=== PATIENT | female | born 1970 | race Caucasian/White ===

== ENCOUNTER 2017-09-24 16:23 | Emergency (ER) | payer OTHER ==
[2017-09-24 16:29] VITALS: BP 123/75; PULSE 71; TEMP 98.1; BMI 26.4
[2017-09-24] MEDS ORDERED: LORATADINE 10 MG TABLET PO ONE (16:54)
[2017-09-24] MEDS ORDERED: DEXAMETHASONE SOD PHOSPHATE 10 MG/1 ML VIAL IM ONE (16:54)
--- NOTE | 2017-09-24 17:00 | PDOC ---
History of Present Illness - General Chief Complaint: Rash Stated Complaint: RASH Time Seen by Provider: 09/24/17 16:50 History Source: Patient - History of Present Illness Timing/Duration: reports: other Severity: Yes: moderate Location: reports: extremities, torso Past History - Past Medical History Allergies/Adverse Reactions: Allergies Allergy/AdvReac Type Severity Reaction Status Date / Time No Known Allergies Allergy Verified 09/24/17 16:29 Home Medications: Ambulatory Orders Loratadine [Claritin] 10 mg PO DAILY #14 tablet 09/24/17 Permethrin 5% Topical Cream [Elimite -] 1 applic TP ONCE #1 tube 09/24/17 Asthma: No Cancer: No Cardiac Disorders: No COPD: No Diabetes: No HTN: No Seizures: No Thyroid Disease: No - Suicide/Smoking/Psychosocial Hx Smoking Status: No Smoking History: Never smoked Have you smoked in the past 12 months: No Number of Cigarettes Smoked Daily: 0 Hx Alcohol Use: No Drug/Substance Use Hx: No Substance Use Type: None Hx Substance Use Treatment: No Review of Systems - Review of Systems Constitutional: No: Chills, Fever Integumentary: Yes: Pruritus, Rash *Physical Exam - Vital Signs Last Vital Signs Temp Pulse Resp BP Pulse Ox 98.1 F 71 18 123/75 99 09/24/17 16:27 09/24/17 16:27 09/24/17 16:27 09/24/17 16:27 09/24/17 16:27 - Physical Exam General Appearance: Yes: Appropriately Dressed, Mild Distress HEENT: positive: Normal Voice Neck: positive: Supple Respiratory/Chest: negative: Respiratory Distress Integumentary: positive: Dry, Warm, Rash (non-descript, erythematous, pinpoint papules scantly distrubuted to anterior neck and hand b/l including sides of fingers), Other (no blisters, vesicles or linear streaking at this time) Neurologic: positive: Fully Oriented, Alert, Normal Mood/Affect Medical Decision Making - Medical Decision Making 09/24/17 17:01 46-year-old female, no significant history here with pruritic rash mostly to neck, trunk and upper extremities that started while gardening 3 days ago. Has not taken anything for itching. No tongue swelling or shortness of breath. Denies any new topical agents at home such as detergents or lotion. No sick contacts or recent travel. See exam Allergic rash vs scabies given hand/web involvement, poison carly considered given hx -claritin/dose of decadron in ED 2/2 severe itching -dc to take otc antihistamine, also given trial of permetrin, will hold off on topical steroids at this time given exam -to return for worsening of symptoms *DC/Admit/Observation/Transfer Diagnosis at time of Disposition: Rash and nonspecific skin eruption - Discharge Dispostion Disposition: HOME Condition at time of disposition: Good - Prescriptions Prescriptions: Loratadine [Claritin] 10 mg PO DAILY #14 tablet Permethrin 5% Topical Cream [Elimite -] 1 applic TP ONCE #1 tube - Referrals Referrals: Megan Bradley MD [Primary Care Provider] - Sana Luna MD [Staff Physician] - - Patient Instructions Printed Discharge Instructions: DI for Rash Additional Instructions: [place] erupcin no est norah en radha momento. Posiblemente podra ser clyde reaccin alrgica. Y para eso puede lakshmi Claritin o Zyrtec clyde vez al da para picar y por la noche. Puede usar Benadryl por la noche segn sea necesario. Tambin le recetaron clyde crema llamada permetrina para la posible sarna, que es clyde erupcin con picazn severa causada por un lazo que es un tipo de insecto. Aplique la crema de la richard a los pies y lvela despus de 8-14 h. Repita en 1 -2 weks si la erupcin todava est presente. Lave toda la ropa de cama / ropa usada desde que comenz la erupcin en [place]. Si todava est presente, siga con el Dr. Luna de dermatologa Por favor regrese a ER si los sntomas empeoran significativamente - Post Discharge Activity
[2017-09-24] MEDS ORDERED: LORATADINE 10 MG TABLET ONE (17:05)
[2017-09-24] MEDS ORDERED: DEXAMETHASONE SOD PHOSPHATE 10 MG/1 ML VIAL ONE (17:05)
== END 2017-09-24 17:13 | disposition home or self-care (01) ==
LOC: JERFT 16:23
PROC: 3E0233Z Introduction of Anti-inflammatory into Muscle, Percutaneous Approach (ICD-10-PCS; principal; 2017-09-24)
DX: R21 Rash and other nonspecific skin eruption (principal)
CPT/HCPCS: 96372; 99281-25; J1100

== ENCOUNTER 2018-03-13 14:05 | Emergency (ER) | payer OTHER ==
[2018-03-13 14:11] VITALS: BMI 25.9
--- NOTE | 2018-03-13 15:40 | PDOC ---
History of Present Illness - General Chief Complaint: Pain Stated Complaint: PAIN Time Seen by Provider: 03/13/18 14:49 History Source: Patient Exam Limitations: Language Barrier - History of Present Illness Initial Comments: 47 yo F w a history of a cyst on her left ovary identified when she was 3 years ago is here with 3 days of on and off LLQ abdominal pain which comes and goes and is associated with occasional nausea but no vomiting. She states the pain radiates to her groin when it comes about. She has not had any abnormal discharge or bleeding coming from her vagina. Last bowel movement was this morning and it was normal in consistency. She states she has not been sexually active for the past 2 months. She also denies any history of sexually transmitted diseases. She also denies having a hx of kidney stones. She denies any recent fevers, chills, or infections. Denies diarrhea or constipation. Denies chest pain, SOB, Difficulty breathing. Denies back pain, leg pain. PCP: Megan Fernandez PSH: None Social hx: Denies smoking, drinking, or illicit drug usage Allergies: NKA, NKDA Past History - Past Medical History Allergies/Adverse Reactions: Allergies Allergy/AdvReac Type Severity Reaction Status Date / Time No Known Allergies Allergy Verified 09/24/17 16:29 Home Medications: Ambulatory Orders NK [No Known Home Medication] 03/13/18 Asthma: No Cancer: No Cardiac Disorders: No COPD: No Diabetes: No HTN: No Seizures: No Thyroid Disease: No - Immunization History Immunization Up to Date: Yes - Suicide/Smoking/Psychosocial Hx Smoking Status: No Smoking History: Never smoked Have you smoked in the past 12 months: No Number of Cigarettes Smoked Daily: 0 Hx Alcohol Use: No Drug/Substance Use Hx: No Substance Use Type: None Hx Substance Use Treatment: No Review of Systems - Review of Systems Comments:: CONSTITUTIONAL: Absent: fever, no chills, no fatigue EYES: Absent: visual changes ENT: Absent: ear pain, no sore throat CARDIOVASCULAR: Absent: chest pain, no palpitations RESPIRATORY: Absent: cough, no SOB GASTROINTESTINAL: Present: Abdominal pain, Nausea Absent: no vomiting, no constipation, no diarrhea GENITOURINARY: Absent: dysuria, frequency, urgency, hesitancy, hematuria, flank pain, genital pain MUSKULOSKELETAL: Absent: back pain, no arthralgia, no myalgia SKIN: Absent: rash NEURO: Absent: Headache *Physical Exam - Vital Signs Last Vital Signs Temp Pulse Resp BP Pulse Ox 98.4 F 83 18 142/78 98 03/13/18 14:08 03/13/18 14:08 03/13/18 14:08 03/13/18 14:08 03/13/18 14:08 - Physical Exam Comments: GENERAL: Well-appearing, well-nourished. No apparent distress. HEENT: Normocephalic, atraumatic. PERRL, EOM intact. CARDIOVASCULAR: Normal S1, S2. Regular rate and rhythm. PULMONARY: Clear to auscultation bilaterally. ABDOMINAL: There is TTP in the LLQ, and mild suprapubic pain. Negative alfaro sign. Abdomen has normal BS and is still soft. Non-distended. No rebound or guarding. No organomegaly. EXTREMITIES: Normal ROM in all four extremities. No gross deformities. SKIN: Warm, dry. No rash NEUROLOGICAL: No focal neurological deficits. PELVIC EXAM There is significant Left adnexal tenderness. External genitalia normal without lesions. Vaginal vault is clear without blood or discharge. Cervix is long and closed. No cervical motion tenderness. Uterus is nontender and normal in size. Moderate Sedation - Procedure Monitoring Vital Signs: Procedure Monitoring Vital Signs Temperature 98.4 F 03/13/18 14:08 Pulse Rate 83 03/13/18 14:08 Respiratory Rate 18 03/13/18 14:08 Blood Pressure 142/78 03/13/18 14:08 O2 Sat by Pulse Oximetry (%) 98 03/13/18 14:08 ED Treatment Course - LABORATORY CBC & Chemistry Diagram: 03/13/18 16:05 03/13/18 16:05 - RADIOLOGY Radiology Studies Ordered: Category Date Time Status TRANSVAGINAL ULTRASOUND US [US] Stat Ultrasound 03/13/18 15:34 Ordered Medical Decision Making - Medical Decision Making 47 yo F w a history of a cyst on her left ovary identified when she was 3 years ago is here with 3 days of on and off LLQ abdominal pain which comes and goes and is associated with occasional nausea but no vomiting. She states the pain radiates to her groin when it comes about. DD includes but not limited to: ovarian torsion, other ovarian pathology, UTI/ pylo, kidney stones, PID, /ectopic, diverticulitis. Plan: Cbc, Cmp, Hcg, ua/uc, TVUS, +/- CTAP, analgesia, IV hydration, re-assess. UA negative for blood, LE, nitrite, HCG. - Lower suspicion for stones, uti/pylo, /ectopic Cbc, Cmp WNL. TVUS showed a 2 cm left ovarian cyst which is likely the source for the patients pain. 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 *DC/Admit/Observation/Transfer Diagnosis at time of Disposition: Ovarian cyst - Discharge Dispostion Disposition: HOME Condition at time of disposition: Stable Decision to Admit order: No - Referrals Referrals: Megan Bradley MD [Primary Care Provider] - Sarahi Gay MD [Staff Physician] - - Patient Instructions Printed Discharge Instructions: DI for Ovarian Cyst Additional Instructions: You came into the ER with Left sided abdominal pain. We did an ultrasound which showed you have a 2 cm cyst in your left ovary. We believe this cyst is the cause of your abdominal pain. Take motrin/ibuprofen/advil for pain relief. It is important to schedule a follow up appointment with a algorithm developer. We have attached the number for Dr. Gay for you to call and schedule and appointment. Please come back to the ER if your pain worsens, becomes unbearable, you start bleeding from your vagina, develop a fever, start to feel lightheaded, have extreme pain, or any other new or worsening concerns. Thank you for coming to the [facility] ER. We hope you feel better soon! Print Language: SLOVENIAN - Post Discharge Activity
[2018-03-13] MEDS ORDERED: SODIUM CHLORIDE 0.9% 500 ML INFUS.BAG IV ONE (15:56)
[2018-03-13] MEDS ORDERED: ACETAMINOPHEN 1000 MG/100 ML VIAL (NON FORMULARY) IVPB ONE (15:58)
[2018-03-13] MEDS ORDERED: ACETAMINOPHEN INJECTION 100 ML IVPB ONE (16:12)
[2018-03-13 16:20] LABS: URINE APPEARANCE CLEAR; URINE BILIRUBIN NEGATIVE (<2.0 mg/dL); URINE COLOR LTYELLOW; URINE GLUCOSE (UA) NEGATIVE (NEGATIVE); URINE KETONE NEGATIVE (NEGATIVE); URINE LEUK ESTERASE NEGATIVE (NEGATIVE); URINE NITRITE NEGATIVE (NEGATIVE); URINE PROTEIN NEGATIVE (NEGATIVE); URINE UROBILINOGEN NEGATIVE mg/dL (0.2-1.0)
[2018-03-13 16:24] LABS: BASO % 0.5 % (0-2.0); EOS % 1.1 % (0-4.5); HEMATOCRIT 38.8 % (32.4-45.2); LYMPH % 19.5 % (8-40); MCH 32.7 pg (25.7-33.7); MEAN CELL VOLUME 90.8 fl (80-96); MONO % 4.7 % (3.8-10.2); NEUT % 74.2 % (42.8-82.8); PLATELET COUNT 383 K/MM3 (134-434); RBC 4.27 M/mm3 (3.60-5.2); RDW 13.3 % (11.6-15.6); WHITE BLOOD COUNT 9.5 K/mm3 (4.0-10.0)
--- NOTE | 2018-03-13 16:36 | PDOC ---
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 LMP was 02/22, no known history of cyst complications, never required cystectomy. - Physicial Exam PE: 03/13/18 16:35 Vital signs normal, urine pending Well-appearing seated in stretcher Abdomen: Soft/nondistended. Tender with some guarding in the left pelvic region , no palpable hernias, no CVA tenderness. Pelvic per resident note - Medical Decision Making 03/13/18 16:35 47-year-old female with 2 days of progressive left pelvic pain, mid cycle with history of ovarian cysts. 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 Rule out UTI, less likely GI etiology. Labs, urinalysis Transvaginal ultrasound Reassess. If ultrasound negative, consider CAT scan.
[2018-03-13 17:06] LABS: ALBUMIN 4.2 g/dl (3.4-5.0); ALK PHOS 127 U/L (45-117); ANION GAP 7 MMOL/L (8-16); BILIRUBIN,TOTAL 0.5 mg/dL (0.2-1); BLOOD UREA NITROGEN 9 mg/dL (7-18); CALCIUM 9.1 mg/dL (8.5-10.1); CHLORIDE 102 mmol/L (98-107); CO2 29 mmol/L (21-32); CREATININE 0.7 mg/dL (0.55-1.3); GLUCOSE,RANDOM 90 mg/dL (74-106); POTASSIUM 3.6 mmol/L (3.5-5.1); SGOT/AST 26 U/L (15-37); SGPT/ALT 39 U/L (13-61); SODIUM 138 mmol/L (136-145); TOT PROT 8.7 g/dl (6.4-8.2)
[2018-03-13] MEDS ORDERED: IBUPROFEN 600 MG TABLET (FP) PO ONE ×2 (18:14→18:23)
[2018-03-13 18:40] VITALS: BP 125/80; PULSE 69; TEMP 98
== END 2018-03-13 18:37 | disposition home or self-care (01) ==
LOC: JER 14:05
PROC: 3E033NZ Introduction of Analgesics, Hypnotics, Sedatives into Peripheral Vein, Percutaneous Approach (ICD-10-PCS; principal; 2018-03-13)
DX: N83.202 Unspecified ovarian cyst, left side (principal)
CPT/HCPCS: 36415; 76830-TC; 80053; 81003; 84703; 85025; 87086; 96374; 99284-25; J0131

== ENCOUNTER 2019-01-24 18:41 | Emergency (ER) | payer OTHER ==
[2019-01-24] MEDS ORDERED: DEXAMETHASONE LIQUID 0.5 MG/5 ML PO ONE (18:48)
--- NOTE | 2019-01-24 18:49 | PDOC ---
Rapid Medical Evaluation Time Seen by Provider: 01/24/19 18:45 Medical Evaluation: Allergies Allergy/AdvReac Type Severity Reaction Status Date / Time No Known Allergies Allergy Verified 03/14/18 16:29 01/24/19 18:46 I have performed a brief in-person evaluation of this patient. The patient presents with a chief complaint of: bee sting to R breast 1 hr ago, feels itching to throat and ear Pertinent physical exam findings: no resp distress, speaking in full sentences I have ordered the following: decadron, defer antihistamine to FT provider The patient will proceed to the ED for further evaluation. Discharge Disposition - Diagnosis Bee sting - Referrals - Patient Instructions - Post Discharge Activity
[2019-01-24 18:50] VITALS: TEMP 98.4; BMI 20.9
[2019-01-24] MEDS ORDERED: diphenhydrAMINE HCL 25 MG CAPSULE (FP) PO ONE (19:00)
[2019-01-24] MEDS ORDERED: DEXAMETHASONE SOD PHOSPHATE 10 MG/1 ML VIAL ONE (19:00)
[2019-01-24] MEDS ORDERED: methylPREDNISolone NA SUCC 125 MG/2 ML VIAL ONE (19:04)
[2019-01-24] MEDS ORDERED: ALBUTEROL SO4 2.5/IPRATROPIUM 0.5 INH SOL 3 ML VIAL.NEB. NEB ONE ×2 (19:10→19:18)
[2019-01-24] MEDS ORDERED: methylPREDNISolone NA SUCC 125 MG/2 ML VIAL IVPUSH ONE (19:17)
--- NOTE | 2019-01-24 20:00 | PDOC ---
History of Present Illness - General Chief Complaint: Bite Stated Complaint: ALLERGIC REACTION Time Seen by Provider: 01/24/19 18:45 History Source: Patient Exam Limitations: Language Barrier - History of Present Illness Initial Comments: Brina Vigil is a 48 yo F who recently emigrated from [place] that presents to the [facility] er after she was stung by a bee and subsequently experienced some throat discomfort. The patient was walking outside at 6 pm when she was stung by a bee on her right breast. She reports that her right breast immediately swelled up and she developed a hive. She became concerned because her throat felt scratchy and she was worried she would start having difficulty breathing. She denies having a hx of anaphylaxis, other allergies, nausea, vomiting, skin rashes aside from her breast, SOB, difficulty breathing, lightheadedness, gastric symptoms, or dizziness. PCP: Megan Fernandez PSH: None reported Allergies: NKA, NKDA Social Hx: Denies smoking, drinking, or other substance usage. Past History - Past Medical History Allergies/Adverse Reactions: Allergies Allergy/AdvReac Type Severity Reaction Status Date / Time No Known Allergies Allergy Verified 03/14/18 16:29 Home Medications: Ambulatory Orders NK [No Known Home Medication] 03/13/18 Asthma: No Cancer: No Cardiac Disorders: No COPD: No Diabetes: No HTN: No Seizures: No Thyroid Disease: No - Immunization History Immunization Up to Date: Yes - Psycho Social/Smoking Cessation Hx Smoking Status: No Smoking History: Never smoked Have you smoked in the past 12 months: No Number of Cigarettes Smoked Daily: 0 Information on smoking cessation initiated: No Hx Alcohol Use: No Drug/Substance Use Hx: No Substance Use Type: None Hx Substance Use Treatment: No Review of Systems - Review of Systems Able to Perform ROS?: Yes Comments:: CONSTITUTIONAL: Absent: fever, chills, diaphoresis, generalized weakness, malaise, loss of appetite HEENT: Present: Throat pain, throat swelling Absent: rhinorrhea, nasal congestion, difficulty swallowing, mouth swelling, ear pain, eye pain, visual Changes CARDIOVASCULAR: Absent: chest pain, syncope, palpitations, irregular heart rate, lightheadedness , peripheral edema RESPIRATORY: Absent: cough, shortness of breath, dyspnea with exertion, orthopnea, wheezing, stridor, hemoptysis GASTROINTESTINAL: Absent: abdominal pain, abdominal distension, nausea, vomiting, diarrhea, constipation, melena, hematochezia GENITOURINARY: Absent: dysuria, frequency, urgency, hesitancy, hematuria, flank pain, genital pain MUSCULOSKELETAL: Absent: myalgia, arthralgia, joint swelling SKIN: Absent: rash, itching, pallor HEMATOLOGIC/IMMUNOLOGIC: Absent: easy bleeding, easy bruising, lymphadenopathy, frequent infections ENDOCRINE: Absent: unexplained weight gain, unexplained weight loss, heat intolerance, cold intolerance NEUROLOGIC: Absent: headache, focal weakness or paresthesias, dizziness, unsteady gait, seizure, mental status changes, bladder or bowel incontinence PSYCHIATRIC: Present: Anxiety Absent: depression, suicidal or homicidal ideation, hallucinations. *Physical Exam - Vital Signs Last Vital Signs Temp Pulse Resp BP Pulse Ox 98.4 F 86 18 123/90 98 01/24/19 18:47 01/24/19 18:47 01/24/19 18:47 01/24/19 18:47 01/24/19 18:47 - Physical Exam Comments: GENERAL: Well developed, well nourished. Awake and alert. No acute distress. HEENT: There is no tongue, lip, or throat swelling. Normocephalic, atraumatic. PERRLA, EOMI. No conjunctival pallor. Sclera are non-icteric. Moist mucous membranes. Oropharynx is clear. NECK: Supple. Full ROM. No JVD. No thyromegaly. No lymphadenopathy. CARDIOVASCULAR: Regular rate and rhythm. No murmurs, rubs, or gallops. Distal pulses are 2+ and symmetric. PULMONARY: No evidence of respiratory distress. Lungs clear to auscultation bilaterally. No wheezing, rales or rhonchi. ABDOMINAL: Soft. Non-tender. Non-distended. No rebound or guarding. No organomegaly. Normoactive bowel sounds. MUSCULOSKELETAL Normal range of motion at all joints. No bony deformities or tenderness. No CVA tenderness. EXTREMITIES: No cyanosis. No clubbing. No edema. No calf tenderness. SKIN: Warm and dry. Normal capillary refill. No rashes. No jaundice. NEUROLOGICAL: Alert, awake. Normal speech. Gait is normal without ataxia. PSYCHIATRIC: Anxious affect. Cooperative. Good eye contact. ED Treatment Course - Medications Given in the ED: ED Medications Discontinued Medications Generic Name Dose Route Start Last Admin Trade Name Freq PRN Reason Stop Dose Admin Albuterol/Ipratropium 3 amp 01/24/19 19:18 01/24/19 19:19 Duoneb - NEB 01/24/19 19:19 3 amp ONCE ONE Administration Dexamethasone 10 mg 01/24/19 18:48 01/24/19 19:19 Decadron Liquid - PO 01/24/19 18:49 Not Given ONCE ONE Diphenhydramine HCl 50 mg 01/24/19 19:18 01/24/19 19:18 Benadryl Injection - IVPUSH 01/24/19 19:19 50 mg ONCE ONE Administration Methylprednisolone Sodium Succinate 125 mg 01/24/19 19:17 01/24/19 19:18 Solu-Medrol - IVPUSH 01/24/19 19:18 125 mg ONCE ONE Administration Medical Decision Making - Medical Decision Making Brina Vigil is a 48 yo F who recently emigrated from [place] that presents to the [facility] er after she was stung by a bee and subsequently experienced some throat discomfort. The patient was walking outside at 6 pm when she was stung by a bee on her right breast. She reports that her right breast immediately swelled up and she developed a hive. She became concerned because her throat felt scratchy and she was worried she would start having difficulty breathing. Vital Signs Temp Pulse Resp BP Pulse Ox 98.4 F 86 18 123/90 98 01/24/19 18:47 01/24/19 18:47 01/24/19 18:47 01/24/19 18:47 01/24/19 18:47 DDx IBNLT: Bee sting causing a mild allergic benign reaction much less likely anaphylaxis or angioedema. Plan: benadryl, solumedrol, pepcid, duonebs, oxygen, cardiac monitoring, re- assess. Re-assessment: Patient feels much better after symptomatic meds and no longer feels like her throat is scratchy. Disposition: Will observe the patient in the ED for 4 hours and then DC with PCP fu if she remains asymptomatic. Discharge - Discharge Information Problems reviewed: Yes Clinical Impression/Diagnosis: Bee sting Qualifiers: Encounter type: initial encounter Injury intent: accidental or unintentional Qualified Code(s): T63.441A - Toxic effect of venom of bees, accidental ( unintentional), initial encounter Condition: Improved Disposition: HOME - Admission No - Follow up/Referral Referrals: Cherelle Murphy NP [Primary Care Provider] - - Patient Discharge Instructions Patient Printed Discharge Instructions: How to Care for an Insect Bite or Sting Additional Instructions: You came into the ER after you were stung by a bee. We gave you some medications which made you feel better. Please make sure to follow up with your primary care doctor in the next 24 to 48 hours to make sure you are still feeling well and getting better. Discuss whether you need an EPI pen with your primary care physician at your appointment. Come back to the ER if you experience any worsening of your symptoms, shortness of breath, feel like your throat, tongue, or mouth is swelling or have any other new or worsening concerns. Thank you for coming to the [facility] ER. We hope you feel better soon! Print Language: [place] - Post Discharge Activity
--- NOTE | 2019-01-24 20:47 | PDOC ---
Attending Attestation - Resident Resident Name: Yazan Ruelas - ED Attending Attestation I have performed the following: I have examined & evaluated the patient, The case was reviewed & discussed with the resident, I agree w/resident's findings & plan, Exceptions are as noted - HPI HPI: 01/24/19 20:44 48F denies pmh here after being stung by a bee on her right breast. Patient describes an immediate localized reaction with pain, swelling, erythema. A/w sensation of throat scratchiness, denies sob. Denies prior anaphylactic reaction to any insult. Denies any known allergies. - Physicial Exam PE: 01/24/19 20:46 Agree with resident exam - Medical Decision Making 01/24/19 20:46 48F otherwise healthy with bee sting, exam inconsistent with anaphylaxis, no concern airway involvement symptomatic treatment observe and reassess in 4 hours dispo per clinical course Resolution of symptoms, no recurrence with observation DC home
[2019-01-25 05:17] VITALS: BP 123/87; PULSE 85
== END 2019-01-24 22:30 | disposition home or self-care (01) ==
LOC: JER 18:41 → JERFT 18:41 → JER 22:30
PROC: 3E0F7GC Introduction of Other Therapeutic Substance into Respiratory Tract, Via Natural or Artificial Opening (ICD-10-PCS; principal; 2019-01-24)
PROC: 3E0333Z Introduction of Anti-inflammatory into Peripheral Vein, Percutaneous Approach (ICD-10-PCS; 2019-01-24)
PROC: 3E033GC Introduction of Other Therapeutic Substance into Peripheral Vein, Percutaneous Approach (ICD-10-PCS; 2019-01-24)
DX: T63.441A Toxic effect of venom of bees, accidental (unintentional), initial encounter (principal); R07.0 Pain in throat; Y92.89 Other specified places as the place of occurrence of the external cause
CPT/HCPCS: 99283-25

== ENCOUNTER 2019-04-01 14:25 | Emergency (ER) | payer OTHER ==
[2019-04-01 14:33] VITALS: BP 133/66; PULSE 73; TEMP 98; BMI 21.4
[2019-04-01] MEDS ORDERED: METOCLOPRAMIDE HCL INJECTION 10 MG/2 ML VIAL IVPUSH ONE (14:34)
--- NOTE | 2019-04-01 14:34 | PDOC ---
Rapid Medical Evaluation Time Seen by Provider: 04/01/19 14:31 Medical Evaluation: Allergies Allergy/AdvReac Type Severity Reaction Status Date / Time No Known Allergies Allergy Verified 03/14/18 16:29 04/01/19 14:31 I performed a brief in-person evaluation of this patient. 48-year-old female with history of migraines presenting with gradual onset headache and vomiting this morning, unrelieved by Tylenol. Pertinent physical exam findings: EOMI PERRL CN II-XII grossly intact I have ordered the following: Reglan, benadryl Fluids Patient will proceed to: Main ED for further evaluation Discharge Disposition - Diagnosis Headache - Referrals - Patient Instructions - Post Discharge Activity
[2019-04-01] MEDS ORDERED: SODIUM CHLORIDE 0.9% 500 ML INFUS.BAG IV ONE (14:43)
[2019-04-01] MEDS ORDERED: METOCLOPRAMIDE HCL INJECTION 10 MG/2 ML VIAL ONE (14:50)
[2019-04-01 15:31] LABS: BASO % 0.4 % (0-2.0); EOS % 1.2 % (0-4.5); HEMATOCRIT 37.2 % (32.4-45.2); HEMOGLOBIN 12.3 GM/dL (10.7-15.3); LYMPH % 14.5 % (8-40); MCH 30.5 pg (25.7-33.7); MCHC 33.2 g/dl (32.0-36.0); MEAN PLT VOLUME 9.1 fl (7.5-11.1); MONO % 4.4 % (3.8-10.2); NEUT % 79.5 % (42.8-82.8); PLATELET COUNT 363 K/MM3 (134-434); RBC 4.04 M/mm3 (3.60-5.2); RDW 13.1 % (11.6-15.6); WHITE BLOOD COUNT 13.8 K/mm3 (4.0-10.0)
[2019-04-01 15:46] LABS: ALBUMIN 3.8 g/dl (3.4-5.0); BILIRUBIN,TOTAL 0.4 mg/dL (0.2-1); BLOOD UREA NITROGEN 12.8 mg/dL (7-18); CALCIUM 8.6 mg/dL (8.5-10.1); CREATININE 0.7 mg/dL (0.55-1.3); POTASSIUM 3.8 mmol/L (3.5-5.1); TOT PROT 7.8 g/dl (6.4-8.2)
[2019-04-01 16:30] LABS: PROTHROMBIN TIME (PATIENT) 11.8 SEC (9.7-13.0)
--- NOTE | 2019-04-01 16:48 | PDOC ---
History of Present Illness - General Chief Complaint: Headache Stated Complaint: HEADACHE Time Seen by Provider: 04/01/19 14:31 - History of Present Illness Initial Comments: 04/01/19 16:46 48-year-old female with a past medical history of migraines presents for evaluation of worsening migraine since this morning now associated with vomiting unrelieved with [id number] medications Past History - Past Medical History Allergies/Adverse Reactions: Allergies Allergy/AdvReac Type Severity Reaction Status Date / Time No Known Allergies Allergy Verified 04/01/19 14:33 Home Medications: Ambulatory Orders NK [No Known Home Medication] 03/13/18 Asthma: No Cancer: No Cardiac Disorders: No COPD: No Diabetes: No HTN: No Seizures: No Thyroid Disease: No - Immunization History Immunization Up to Date: Yes - Psycho Social/Smoking Cessation Hx Smoking Status: No Smoking History: Never smoked Have you smoked in the past 12 months: No Number of Cigarettes Smoked Daily: 0 Hx Alcohol Use: No Drug/Substance Use Hx: No Substance Use Type: None Hx Substance Use Treatment: No Review of Systems - Review of Systems ABD/GI: Yes: Nausea, Vomiting Neurological: Yes: Headache *Physical Exam - Vital Signs Last Vital Signs Temp Pulse Resp BP Pulse Ox 98 F 73 18 133/66 98 04/01/19 14:29 04/01/19 14:29 04/01/19 14:29 04/01/19 14:29 04/01/19 14:29 - Physical Exam 04/01/19 16:46 GENERAL: The patient is awake, alert, and fully oriented, vomiting HEAD: Normal with no signs of trauma. EYES: sclera anicteric, conjunctiva clear. ENT: Ears normal NECK: Normal range of motion LUNGS: No respiratory distress ABDOMEN: Normal EXTREMITIES: Normal range of motion, no edema. No clubbing or cyanosis. No cords, erythema, or tenderness. NEUROLOGICAL: Cranial nerves II through XII grossly intact. Normal speech, normal gait. PSYCH: Normal mood, normal affect. SKIN: Warm, Dry, normal turgor, no rashes or lesions noted. ED Treatment Course - LABORATORY CBC & Chemistry Diagram: 04/01/19 13:05 04/01/19 13:05 - ADDITIONAL ORDERS Additional order review: Laboratory Results 04/01/19 04/01/19 04/01/19 13:05 13:05 13:05 PT with INR 11.80 INR 1.00 Sodium Potassium Chloride Carbon Dioxide Anion Gap BUN Creatinine Est GFR (CKD-EPI)AfAm Est GFR (CKD-EPI)NonAf Random Glucose Calcium Total Bilirubin AST ALT Alkaline Phosphatase Total Protein Albumin Lipase 77 Serum , Qual Negative 04/01/19 13:05 PT with INR INR Sodium 138 Potassium 3.8 Chloride 106 Carbon Dioxide 25 Anion Gap 6 L BUN 12.8 Creatinine 0.7 Est GFR (CKD-EPI)AfAm 120.43 Est GFR (CKD-EPI)NonAf 103.90 Random Glucose 110 H Calcium 8.6 Total Bilirubin 0.4 AST 21 ALT 43 Alkaline Phosphatase 113 Total Protein 7.8 Albumin 3.8 Lipase Serum , Qual 04/01/19 13:05 RBC 4.04 MCV 92.0 MCHC 33.2 RDW 13.1 MPV 9.1 Neutrophils % 79.5 Lymphocytes % 14.5 D Monocytes % 4.4 Eosinophils % 1.2 Basophils % 0.4 - RADIOLOGY Radiology Studies Ordered: Category Date Time Status HEAD CT WITHOUT CONTRAST [CT] Stat CT Scan 04/01/19 14:47 Completed - Medications Given in the ED: ED Medications Discontinued Medications Generic Name Dose Route Start Last Admin Trade Name Freq PRN Reason Stop Dose Admin Diphenhydramine HCl 12.5 mg 04/01/19 14:34 04/01/19 15:12 Benadryl Injection - IVPUSH 04/01/19 14:35 12.5 mg ONCE ONE Administration Metoclopramide HCl 10 mg 04/01/19 14:34 04/01/19 15:12 Reglan Injection - IVPUSH 04/01/19 14:35 10 mg ONCE ONE Administration Sodium Chloride 1,000 ml 04/01/19 14:43 04/01/19 15:12 Normal Saline - IV 04/01/19 14:44 1,000 ml ONCE ONE Administration Medical Decision Making - Medical Decision Making 04/01/19 16:47 CAT scan normal headache relieved with IV medications and fluids follow-up with neurology Discharge - Discharge Information Problems reviewed: Yes Clinical Impression/Diagnosis: Headache Condition: Stable Disposition: HOME - Admission No - Follow up/Referral Referrals: Cherelle Murphy NP [Primary Care Provider] - Saúl Madison MD [Staff Physician] - - Patient Discharge Instructions Additional Instructions: Tylenol and Motrin as directed for headaches. Return to the emergency room for worsening symptoms. Without fail please follow-up with neurology in 2 to 3 days for further evaluation and treatment options. - Post Discharge Activity
== END 2019-04-01 16:54 | disposition home or self-care (01) ==
LOC: JERFT 14:25
PROC: 3E033GC Introduction of Other Therapeutic Substance into Peripheral Vein, Percutaneous Approach (ICD-10-PCS; principal; 2019-04-01)
PROC: 3E033GC Introduction of Other Therapeutic Substance into Peripheral Vein, Percutaneous Approach (ICD-10-PCS; 2019-04-01)
DX: R51 Headache (principal)
CPT/HCPCS: 36415; 70450-TC; 80053; 83690; 84703; 85025; 85610; 99281-25

== ENCOUNTER 2019-11-05 00:35 | Emergency (ER) | payer OTHER ==
--- NOTE | 2019-11-05 01:16 | PDOC ---
History of Present Illness - General Chief Complaint: Nausea/Vomiting Stated Complaint: VOMITING AND HEADACHE Time Seen by Provider: 11/05/19 01:15 History Source: Patient - History of Present Illness Initial Comments: 11/05/19 01:55 48-year-old female status post hand surgery yesterday. Patient reports that she has been n.p.o. for 24 hours. Patient is also taking Percocet for pain since being home she has been having nausea and vomiting with headache. Patient reports that she is unable to tolerate any p.o. due to the extreme nausea. Past History - Medical History Allergies/Adverse Reactions: Allergies Allergy/AdvReac Type Severity Reaction Status Date / Time No Known Allergies Allergy Verified 11/05/19 01:19 Home Medications: Ambulatory Orders NK [No Known Home Medication] 03/13/18 Asthma: No Cancer: No Cardiac Disorders: No COPD: No Diabetes: No HTN: No Seizures: No Thyroid Disease: No - Immunization History Immunization Up to Date: Yes - Psycho-Social/Smoking History Smoking Status: No Smoking History: Never smoked Have you smoked in the past 12 months: No Number of Cigarettes Smoked Daily: 0 Review of Systems - Review of Systems Able to Perform ROS?: Yes Is the patient limited Japanese proficient: No Constitutional: No: Symptoms Reported, See HPI, Chills, Diaphoresis, Fever, Loss of Appetite, Malaise, Night Sweats, Weakness, Weight Stable, Unintentional Wgt. Loss, Unexplained wgt Loss, Other ABD/GI: Yes: Nausea, Vomiting, Abdominal cramping. No: Symptoms Reported, See HPI, Abdominal Distended, Abd. Pain w/ defecation, Blood Streaked Bowels, Constipated, Diarrhea, Difficulty Swallowing, Poor Appetite, Poor Fluid Intake, Rectal Bleeding, Indigestion, Tarry Stools, Other : No: Symptoms Reported, See HPI, Burning, Dysuria, Discharge, Frequency, Flank Pain, Hematuria, Incontinence, Pain, Urgency, Testicular Mass, Testicular Swelling, Lesions, Testicular Pain, Other Musculoskeletal: No: Symptoms Reported, See HPI, Back Pain, Gout, Joint Pain, Joint Swelling, Muscle Pain, Muscle Weakness, Neck Pain, Joint Stiffness, Other *Physical Exam - Vital Signs 11/05/19 03:11 Last Vital Signs Temp Pulse Resp BP Pulse Ox 97.7 F 68 17 117/71 98 11/05/19 00:40 11/05/19 00:40 11/05/19 00:40 11/05/19 00:40 11/05/19 00:40 - Physical Exam General Appearance: Yes: Appropriately Dressed HEENT: positive: Normal ENT Inspection Respiratory/Chest: positive: Lungs Clear, Normal Breath Sounds Gastrointestinal/Abdominal: positive: Normal Bowel Sounds, Soft. negative: Tender Extremity: positive: Normal Capillary Refill, Normal Inspection, Normal Range of Motion Integumentary: positive: Normal Color, Dry, Warm Neurologic: positive: Fully Oriented, Alert, Normal Mood/Affect ED Treatment Course - LABORATORY CBC & Chemistry Diagram: 11/05/19 04:12 11/05/19 04:12 ED Progress Note - Progress Note Progress Note: headache; nausea and vomiting after anesthesia P: zofran / Po chaLLENGE IF UNABLE LABS ivf consider CT head Medical Decision Making - Medical Decision Making 11/05/19 02:56 currently PO challenging 11/05/19 03:36 Patient vomited after PO challenging, will do labs and IV fluids. patient reports headache is better. 11/05/19 03:37 CT head: The ventricular system is midline and nondilated. The sulcal pattern is normal for the patient's age. There is no bleed, mass, extra-axial fluid collection or mass effect. No skull fracture or skull lesion is identified. The visualized paranasal sinuses and mastoid air cells are clear. patient reports no headache. reports feeling better. CT head negative, Discharge - Discharge Information Problems reviewed: Yes Clinical Impression/Diagnosis: Nausea and vomiting after administration of anesthetic agent Headache Qualifiers: Headache type: unspecified Headache chronicity pattern: unspecified pattern I ntractability: not intractable Qualified Code(s): R51 - Headache Condition: Fair Disposition: HOME - Follow up/Referral Referrals: Cherelle Murphy NP [Primary Care Provider] - - Patient Discharge Instructions Patient Printed Discharge Instructions: DI for Vomiting -- Adult Additional Instructions: drink plenty of fluids. follow up with your doctor as soon as possible. - Post Discharge Activity Work/Back to School Note: Back to Work
[2019-11-05 01:19] VITALS: TEMP 97.7; BMI 21.7
--- NOTE | 2019-11-05 01:21 | PDOC ---
*Physical Exam - Vital Signs Last Vital Signs Temp Pulse Resp BP Pulse Ox 97.7 F 68 17 117/71 98 11/05/19 00:40 11/05/19 00:40 11/05/19 00:40 11/05/19 00:40 11/05/19 00:40 ED Treatment Course - LABORATORY CBC & Chemistry Diagram: 11/05/19 04:12 11/05/19 04:12 Medical Decision Making - Medical Decision Making 11/05/19 01:21 Patient seen by the advanced practice provider under my supervision. Ancillary testing reviewed as necessary. I agree with plan as outlined by the advanced practice provider. Discharge - Discharge Information Problems reviewed: Yes Clinical Impression/Diagnosis: Nausea and vomiting after administration of anesthetic agent Headache Qualifiers: Headache type: unspecified Headache chronicity pattern: unspecified pattern Intractability: not intractable Qualified Code(s): R51 - Headache Condition: Fair - Follow up/Referral Referrals: Cherelle Murphy NP [Primary Care Provider] - - Patient Discharge Instructions - Post Discharge Activity
[2019-11-05] MEDS ORDERED: ACETAMINOPHEN 325 MG TABLET (FP) PO ONE (01:39)
[2019-11-05] MEDS ORDERED: ONDANSETRON *ODT* 4 MG TABLET SL ONE (01:39)
[2019-11-05] MEDS ORDERED: ACETAMINOPHEN 325 MG TABLET (FP) ONE (01:51)
[2019-11-05] MEDS ORDERED: ONDANSETRON *ODT* 4 MG TABLET ONE (01:51)
[2019-11-05 02:43] LABS: EPI CELLS 25 /uL (0-25.1); HCG,QUALITATIVE URINE Negative; HYALINE CASTS 1 /uL (0-3.1); PH,URINE 6.5 (5.0-8.0); URINE APPEARANCE CLEAR; URINE BACTERIA 8 /uL (0-1359); URINE BILIRUBIN NEGATIVE (NEGATIVE); URINE COLOR YELLOW; URINE GLUCOSE (UA) NEGATIVE (NEGATIVE); URINE KETONE TRACE (NEGATIVE); URINE LEUK ESTERASE TRACE (NEGATIVE); URINE NITRITE NEGATIVE (NEGATIVE); URINE PROTEIN TRACE (NEGATIVE); URINE RBC 2505 /uL (0-23.9); URINE UROBILINOGEN 0.2 mg/dL (0.2-1.0); URINE WBC 22 /uL (0-25.8)
[2019-11-05] MEDS ORDERED: METOCLOPRAMIDE HCL INJECTION 10 MG/2 ML VIAL IVPB ONE (03:36)
[2019-11-05] MEDS ORDERED: SODIUM CHLORIDE 1,000 ML IV STA (03:36)
[2019-11-05] MEDS ORDERED: METOCLOPRAMIDE HCL INJECTION 10 MG/2 ML VIAL ONE (03:53)
[2019-11-05 04:50] LABS: BASO % 0.7 % (0-2.0); HEMATOCRIT 39.3 % (32.4-45.2); HEMOGLOBIN 13.2 GM/dL (10.7-15.3); LYMPH % 8.7 % (8-40); MCH 30.8 pg (25.7-33.7); MCHC 33.7 g/dl (32.0-36.0); MEAN CELL VOLUME 91.4 fl (80-96); MEAN PLT VOLUME 10.9 fl (7.5-11.1); MONO % 2.1 % (3.8-10.2); NEUT % 88.5 % (42.8-82.8); PLATELET COUNT 187 K/MM3 (134-434); RDW 12.9 % (11.6-15.6); WHITE BLOOD COUNT 12.9 K/mm3 (4.0-10.0)
[2019-11-05 05:00] LABS: ALBUMIN 3.7 g/dl (3.4-5.0); BILIRUBIN,TOTAL 0.4 mg/dL (0.2-1); BLOOD UREA NITROGEN 9.8 mg/dL (7-18); CALCIUM 8.9 mg/dL (8.5-10.1); CREATININE 0.7 mg/dL (0.55-1.3); POTASSIUM 3.6 mmol/L (3.5-5.1); TOT PROT 7.6 g/dl (6.4-8.2)
[2019-11-05 06:36] VITALS: BP 115/78; PULSE 75
== END 2019-11-05 06:35 | disposition home or self-care (01) ==
LOC: JER 00:35
PROC: 3E033NZ Introduction of Analgesics, Hypnotics, Sedatives into Peripheral Vein, Percutaneous Approach (ICD-10-PCS; principal; 2019-11-05)
PROC: 3E033GC Introduction of Other Therapeutic Substance into Peripheral Vein, Percutaneous Approach (ICD-10-PCS; 2019-11-05)
DX: R11.2 Nausea with vomiting, unspecified (principal); R51 Headache
CPT/HCPCS: 36415; 70450-TC; 80053; 81003; 84703; 85025; 99285-25; Q0162

== ENCOUNTER 2020-09-19 19:09 | Emergency (ER) | payer OTHER ==
[2020-09-19 19:17] VITALS: BMI 27.9
[2020-09-19] MEDS ORDERED: ACETAMINOPHEN 500 MG TABLET (FP) PO ONE (19:33)
[2020-09-19] MEDS ORDERED: ACETAMINOPHEN 500 MG TABLET (FP) ONE (19:37)
[2020-09-19 22:06] VITALS: BP 110/67; PULSE 72; TEMP 98.6
== END 2020-09-19 22:06 | disposition home or self-care (01) ==
LOC: JER 19:09 → JERFT 19:09
DX: E04.1 Nontoxic single thyroid nodule (principal)
CPT/HCPCS: 76536-TC; 99284-25

== ENCOUNTER 2021-10-20 18:23 | Emergency (ER) | payer OTHER ==
[2021-10-20 18:32] VITALS: BP 133/79; PULSE 68; TEMP 98.3; BMI 25.2
[2021-10-20] MEDS ORDERED: KETOROLAC TROMETHAMINE 30 MG/1 ML VIAL IVPUSH ONE (21:19)
[2021-10-20] MEDS ORDERED: KETOROLAC TROMETHAMINE 30 MG/1 ML VIAL ONE (21:28)
[2021-10-20 21:56] LABS: BASO % 0.4 % (0-2.0); EOS % 2.2 % (0-4.5); HEMATOCRIT 36.5 % (32.4-45.2); HEMOGLOBIN 12.6 GM/dL (10.7-15.3); LYMPH % 25.5 % (8-40); MCH 31.3 pg (25.7-33.7); MCHC 34.5 g/dl (32.0-36.0); MEAN CELL VOLUME 90.6 fl (80-96); MEAN PLT VOLUME 8.8 fl (7.5-11.1); MONO % 6.8 % (3.8-10.2); NEUT % 65.1 % (42.8-82.8); PLATELET COUNT 331 10^3/uL (134-434); RBC 4.03 M/mm3 (3.60-5.2); RDW 13.1 % (11.6-15.6); WHITE BLOOD COUNT 8.1 K/mm3 (4.0-10.0)
[2021-10-20 22:14] LABS: ALBUMIN 3.7 g/dl (3.4-5.0); BLOOD UREA NITROGEN 12.5 mg/dL (7-18); CALCIUM 8.5 mg/dL (8.5-10.1)
[2021-10-20 22:17] LABS: CREATININE 0.7 mg/dL (0.55-1.3)
[2021-10-20 22:19] LABS: BILIRUBIN,TOTAL 0.3 mg/dL (0.2-1); TOT PROT 7.5 g/dl (6.4-8.2)
== END 2021-10-21 00:40 | disposition home or self-care (01) ==
LOC: JERFT 18:23
PROC: 3E033GC Introduction of Other Therapeutic Substance into Peripheral Vein, Percutaneous Approach (ICD-10-PCS; principal; 2021-10-20)
DX: M54.2 Cervicalgia (principal)
CPT/HCPCS: 36415; 70480-TC; 80053; 85025; 99285-25